=== PATIENT | male | born 1940 | race Caucasian/White ===

== ENCOUNTER 2021-09-02 09:26 | Day surgery (SDC) | payer OTHER ==
[2021-08-29 13:18] LABS: Absolute Lymphocytes (CBC) 1.8 K/uL (0.7-4.9); Hematocrit 39.1 % (39.6-49.0); Lymphocytes % 33.4 % (15.3-44.8); MCV 88.2 fL (80-100); MPV 6.8 fL (7.6-11.3); Protime INR 1.03; RBC Red Blood Cell Count 4.43 M/uL (4.33-5.43)
--- NOTE | 2021-08-29 13:19 | RAD REPORT ---
EXAM DESCRIPTION: Chiara Zuniga (2 Views)08/29/2021 1:05 pm CLINICAL HISTORY: Preop for genitourinary surgery/hypertension COMPARISON: 2016 FINDINGS: The lungs are mildly to moderately hyperaerated. The lungs appear clear of acute infiltrate. The heart is normal size IMPRESSION: No acute abnormalities displayed
[2021-08-29 13:32] LABS: SARS-CoV-2 Antigen Rapid Res Negative (Negative)
--- NOTE | 2021-08-30 09:02 | EKG ---
Test Date: 2021-08-29 Test Time: 12:50:20 Hospital Chaplain: CD MEASUREMENT RESULTS: Intervals: Rate: 57 SC: 186 QRSD: 154 QT: 472 QTc: 459 Mittie: P: 60 SC: 186 QRS: 32 T: 93 INTERPRETIVE STATEMENTS: Sinus bradycardia with premature atrial complexes Left bundle branch block Abnormal ECG No previous ECG available for comparison Electronically Signed On 08-30-21 09:02:29 CDT by Deven Jha
[~2021-09-02 09:26] MED LIST: CLINDAMYCIN 600MG/D5W 600 MG/50 ML BAG IV ONE; Gentamicin Inj 200 MG in NA CHLORIDE 0.9% 100 ML IVPB ONE
[2021-09-02] MEDS ORDERED: Ringers Lactate 1,000 ML IV ONE (09:52)
[2021-09-02] MEDS ORDERED: CELECOXIB 100 MG CAPSULE ONE (10:20)
[2021-09-02] MEDS ORDERED: ACETAMINOPHEN 500 MG TAB ONE (10:20)
[2021-09-02] MEDS ORDERED: LIDOCAINE 1% MPF 5 ML VIAL ONE (10:54)
[2021-09-02] MEDS ORDERED: propofoL 200 MG/20 ML VIAL IV ONE (10:54)
[2021-09-02] MEDS ORDERED: FENTANYL CITR 100 MCG/2 ML ONE (10:54)
[2021-09-02] MEDS ORDERED: ONDANSETRON 4 MG/2 ML VIAL ONE (10:54)
[2021-09-02] MEDS ORDERED: EPHEDRINE SULF 50 MG/ML VIAL ONE (12:20)
[2021-09-02] MEDS ORDERED: CODEINE 30MG/APAP 300MG TAB PO PRN (12:48)
[2021-09-02 14:21] VITALS: BP 130/63; TEMP 97.5; O2SAT 98
--- NOTE | 2021-09-02 16:54 | OP ---
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 Principle Procedure: Prostatic urethral lift/UroLift with 7 implants placed, 3 on the right and 4 on the left. Urethral dilation using sounds. Indication For Procedure: Mr. Palacios presented to the [facility] with elevated PSA and bothersome lower urinary symptoms. His PSA resolved to a reasonable baseline with treatment of alpha-alexis m edical therapy for his LUTS, but he desired further improvement and definitive management to allow hi m to cease medical therapy and thus selected to proceed with UroLift as he was a candidate cystoscopi sumaya. His prostate was approximately 35 g. Procedure In Detail: The patient was consented in the preoperative holding area before being transfe rred to the operative suite where general anesthesia was induced. Because of penicillin allergy, he was given clindamycin 600 mg and gentamicin 200 mg IV antimicrobial prophylaxis. Pneumo boots were p rovided for DVT prophylaxis. He was placed in the lithotomy position, padded and secured to the tabl e appropriately. His genitalia were prepped using Hibiclens and he was draped in standard fashion. The case was begun using a 20-[place] cystoscopy sheath and a visual obturator, which was then used to traverse the urethra after dilating the meatus and fossa navicularis using sounds. After dilating h is urethra meatus and fossa navicularis using sounds to 24-[place], I was then able to pass the 20-Beto mdh cystoscope sheath via the urethra into his bladder with ease. As it has previously been observed , there was significant lateral lobar hypertrophy without significant anterior lobar overhang, mild e levation of median bar without intravesically projecting median lobe. As a result, I decompressed hi s bladder off fluid and urine and then inserted an UroLift delivery device. The first treatment rich cted involved the patient's left side approximately 2 cm distal to the bladder neck. The distal tip of the delivery device was angled laterally approximately 20 degrees at this position to compress the lateral lobe. The trigger was pulled, thereby deploying a needle containing the implant through the prostate. The needle was retracted, allowing 1 into the implant to be delivered to the capsular hang face of the prostate. The implant was then tensioned to assure capsular seating and removal of slack monofilament. The device was then angled back toward midline and slowly advanced proximally approxi mately 1-2 mm until cystoscopic verification of the monofilament being centered in the delivery bay w as noted. The urethral end piece was then affixed to the monofilament thereby tailoring the size of the implant and excess filament was severed. The delivery device was then readvanced into the blae r and switched out for a new implant delivery device. A similar implant was placed in the right ante rolateral wall prostatic lateral lobe, which then achieved a significantly patent bladder neck with s ome minimal to moderate residual anterior lateral overhang from the left side. We then proceeded to place an additional implant at the apex of the prostate on the left side at the level of the verumont renetta and a similar implant was placed on the right side at the level of the verumontanum. Obturator was then exchanged for the delivery device and the channel was surveyed. There was residual lateral lobar hypertrophy in the mid zone of the prostate between the apex and the bladder neck implant site bilaterally, so an additional implant was placed in the right mid lateral zone of the prostate and an additional implant was placed in the left mid lateral zone of the prostate. I then surveyed the sandie nnel again with the bladder decompressed and the visual obturator in place, and I was still unhappy w ith a slight degree of left anterior lateral overhang; so I placed an additional implant 1-2 mm proxi mal to the most proximal implant at the bladder neck on the left and stacked slightly anteriorly in o rder to generate a completely open and symmetric anterior channel. Once this was completed, there wa s a beautiful anterior channel with the bladder decompressed and no fluid inflow from the verumontanu m through the bladder neck that I was very happy with. As a result, a total of [address], 4 on the left side and 3 on the right side. I then placed an 18-[place] coude tip Morales catheter i nto his bladder with ease, and 30 cc of sterile water was placed in the balloon. The patient was the n taken out of the lithotomy position, awakened from general anesthesia, transferred to a stretcher, and then to the recovery room in good condition. Complications: None. Discharge Disposition: He will remove the urethral catheter tomorrow morning at home and notify us i f he has any difficulty voiding by 1 p.m. He will be discharged with an antimicrobial for the next 3 days as well as some gentle narcotic pain medicine as necessary. Subsequent followup should be esta blished in about 1 month's time for interval assessment of his LUTS. SUSI Voice ID: [id number] Report ID: [id number]
== END 2021-09-02 14:06 | disposition home or self-care (01) ==
LOC: OR 09:26
PROVIDERS: ATTEND Urology
PROC: 3C1ZX8Z Irrigation of Indwelling Device using Irrigating Substance, External Approach (ICD-10-PCS; 2021-09-02)
PROC: 0T7D8DZ Dilation of Urethra with Intraluminal Device, Via Natural or Artificial Opening Endoscopic (ICD-10-PCS; principal; 2021-09-02 10:30)
DX: N40.1 Benign prostatic hyperplasia with lower urinary tract symptoms (principal); N35.919 Unspecified urethral stricture, male, unspecified site; Z20.822 Contact with and (suspected) exposure to COVID-19
CPT/HCPCS: 52441; 52442 ×6; 93005; 87088; 85025; 87086; 36415; 85610; 71046; 87811; 51700; J2704; J1580; J3010; J7120; J2405